=== PATIENT | female | born 1995 | race Caucasian/White ===

== ENCOUNTER 2016-08-10 16:39 | Emergency (ER) | payer MEDICAID, OTHER, SELFPAY ==
[2016-08-10] MEDS ORDERED: PERCOCET 5MG/325MG TAB As Ordered ONE ×2 (19:09→21:14)
[2016-08-10 19:32] LABS: MEAN CORPUSCULAR HEMOGLOBIN 32.6 pg (27.0-33.0); MEAN CORPUSCULAR HGB CONC 32.9 g/dl (32.0-36.5); MEAN CORPUSCULAR VOLUME 99.2 fl (80.0-96.0); RED CELL DISTRIBUTION WIDTH 12.8 % (11.5-14.5); WHITE BLOOD COUNT 15.5 K/mm3 (4.0-10.0)
[2016-08-10 20:16] LABS: ANION GAP 8 MEQ/L (8-16); BLOOD UREA NITROGEN 13 MG/DL (7-18); CALCIUM LEVEL 8.8 MG/DL (8.5-10.1); CARBON DIOXIDE LEVEL 27 MEQ/L (21-32); CHLORIDE LEVEL 105 MEQ/L (98-107); CREATININE FOR GFR 0.63 MG/DL (0.55-1.02); GLOMERULAR FILTRATION RATE > 60.0 (>60); GLUCOSE, FASTING 99 MG/DL (70-105); HCG, SERUM QUANTITATIVE 1553 MIU/ML; POTASSIUM SERUM 3.7 MEQ/L (3.5-5.1); SODIUM LEVEL 140 MEQ/L (136-145)
--- NOTE | 2016-08-10 21:10 | REPUSA ---
Clinical history: bleeding. Findings: Real-time transabdominal ultrasound images of the pelvis were obtained. An anteverted uteru s is noted, measuring 12.0 x 4.9 x 6.0 cm. The uterus demonstrates normal echotexture and echogenicit y. The endometrial canal demonstrated intrauterine gestation with a mean sac diameter of 30.3 mm. A f etal pole is noted, measuring 8 weeks 3 days. However, no heart tones were appreciated. The ges tational sac is located in the lower uterine segment. The right ovary measures 3.7 x 2.3 x 2.2 cm. Th e left ovary measures 3.1 x 1.6 x 3.3 cm. No adnexal masses are seen. Color Doppler flow is seen with in both ovaries. There is no evidence of free fluid. Impression: Single intrauterine gestation measuring 8 weeks 3 days by ultrasound measurements. Howeve r, no heart tones are appreciated. The gestational sac is located in the lower uterine segment. Both of these findings suggest a missed . Follow-up with serial serum beta hCG levels is rec ommended as clinically indicated.
[2016-08-10] MEDS ORDERED: NITROFURANTOIN (MACROBID) 100 MG CAP As Ordered ONE (21:28)
--- NOTE | 2016-08-10 21:36 | EDDOCDS ---
Physician Documentation [facility] Name: Danni Ash Age: 21 yrs Sex: Female : 1995 Arrival Date: 08/10/2016 Time: 16:39 Bed I4 / M4 Private MD: NO PRIMARY PHYSICIAN, . Disposition: 08/10/16 21:21 Discharged to Home/Self Care. Impression: Missed , Urinary tract infection, site not specified. - Condition is Stable. - Discharge Instructions: Incomplete Miscarriage, Miscarriage. - Prescriptions for Percocet 5- 325 mg Oral Tablet - take 1 tablet by ORAL route every 6 hours As needed MDD: 4 tabs; 20 tablet. Macrobid 100 mg Oral Capsule - take 100 milligram by ORAL route every 12 hours for 10 days; 20 capsule. - Medication Reconciliation, Local Pharmacy Hours form. - Follow up: Les Hernandez MD; When: Call to arrange an appointment; Reason: Recheck today's complaints, Continuance of care. - Problem is new. - Symptoms are unchanged. Historical: - Allergies: no known allergies; - Home Meds: 1. none - PMHx: none; - PSHx: Tonsillectomy; - Social history: Smoking status: Patient uses tobacco products, light tobacco smoker. No barriers to communication noted, The patient speaks fluent Wolof. - : The pt / caregiver states he / she is not on anticoagulants. Home medication list is obtained from the patient. - Exposure Risk Screening:: None identified. 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 6 in. (167.64 cm) (R); 21:31 BP 140 / 85; Pulse 96; Resp 18; Temp 100.5(TE); Pulse Ox 99% on R/A; Pain 8/10; jb5 16:41 Body Mass Index 16.79 (47.17 kg, 167.64 cm) dd6 21:31 pevis area pain jb5 MDM: 19:03 IV Saline Lock ordered. mo1 19:03 Undress patient appropriately for examination ordered. mo1 19:03 NS 0.9% 1000 ml IV at bolus once ordered. mo1 19:03 oxyCODONE-acetaminophen 5 mg-325 mg 1 tabs PO once ordered. mo1 19:04 Complete Blood Count Ordered. EDMS 19:04 Hcg, Serum Quantitative Ordered. EDMS 19:04 Urinalysis Ordered. EDMS 19:04 BMP Ordered. EDMS 19:04 GC & Chlamydia Amplification Ordered. EDMS 19:05 Wet Prep Ordered. EDMS 19:05 Type & Screen Ordered. EDMS 19:05 US 1st trimester Ordered. EDMS 19:35 Financial registration complete. zo 19:38 [facility] Payment Agreement was scanned into [employer] and attached to record. zo 19:57 Complete Blood Count Reviewed. mo1 19:58 Urinalysis Reviewed. mo1 19:58 Type & Screen Reviewed. mo1 19:58 Wet Prep Reviewed. mo1 20:22 BMP Reviewed. mo1 20:22 Hcg, Serum Quantitative Reviewed. mo1 20:22 Type & Screen Reviewed. mo1 21:10 oxyCODONE-acetaminophen 5 mg-325 mg 1 tabs PO once ordered. mo1 21:24 Nitrofurantoin 100 mg PO once ordered. mo1 21:32 GC & Chlamydia Amplification Reviewed. mo1 Administered Medications: 19:13 Drug: oxyCODONE-acetaminophen 1 tabs [oxycodone-acetaminophen 5 mg-325 mg tablet (1 cz tabs)] Route: PO; 20:08 Follow up: Response: No significant change. cp1 19:21 Drug: NS 0.9% 1000 ml [sodium chloride 0.9 % intravenous solution] Route: IV; Rate: jmb bolus; Site: right antecubital; 21:33 Follow up: IV Status: Completed infusion cz 21:16 Drug: oxyCODONE-acetaminophen 1 tabs [oxycodone-acetaminophen 5 mg-325 mg tablet (1 cp1 tabs)] {Note: 9/10 pain.} Route: PO; Signatures: Dispatcher [employer] EDMS Parth Davalos RN RN cz Odalys Stuart Rosemary, RN RN rs3 Niko Tse PA PA mo1 Lolly Jalloh LPN cp1 Cortez Taylor RN jmb The chart was reviewed and I authenticate all verbal orders and agree with the evaluation and treatment provided.Attachments: 19:38 [facility] [place] Payment Agreement zo MTDD
--- NOTE | 2016-08-10 21:37 | EDDOCDS ---
Nurse's Notes [facility] Name: Danni Ash Age: 21 yrs Sex: Female : 1995 Arrival Date: 08/10/2016 Time: 16:39 Bed I4 / M4 Private MD: NO PRIMARY PHYSICIAN, . Diagnosis: Missed ;Urinary tract infection, site not specified Presentation: 08/10 17:00 Presenting complaint: Patient states: Vaginal bleeding, cramps since yesterday. passed rs3 big blood clots yesterday. 9 weeks . Risk factors: The patient reports no loss of conciousness prior to arrival. This patient has not had a hysterectomy. This patient has not begun menopause. Adult Sepsis Screening: The patient does not have new or worsening altered mentation. Patient's respiratory rate is less than 22. Systolic blood pressure is greater than 100. Patient has a qSOFA score of 0- Negative Sepsis Screen. Suicide/Homicide risk assessment- the patient denies having any suicidal and/or homicidal ideations and does not present with any other emotional, behavioral or mental health complaints. 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 Transition of care: patient was not received from another setting of care. 17:00 Acuity: SOURAV Level 3 rs3 17:00 Method Of Arrival: Walkin/Carried/Asstd rs3 Triage Assessment: 17:02 General: Appears in no apparent distress. Pain: Location: pelvis. HIV screening NA for rs3 this visit Offered previously. : Reports vaginal bleeding that is moderate flow. 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 none - PMHx: none; - PSHx: Tonsillectomy; - Social history: Smoking status: Patient uses tobacco products, light tobacco smoker. No barriers to communication noted, The patient speaks fluent Amharic. - : The pt / caregiver states he / she is not on anticoagulants. Home medication list is obtained from the patient. - Exposure Risk Screening:: None identified. Screenin:22 Screening information is obtained from the patient. Fall risk: No risks identified. ms2 Assistance ADL's: requires no assistance with activities of daily living. Abuse/DV Screen: The patient / caregiver reports he/she is: not in a situation that causes fear, pain or injury. Nutritional screening: No deficits noted. Advance Directives: Currently, there is no health care proxy. There is no active DNR order. There is no living will. There is no Power of Contracting Engineer. Advance directive information has not previously been placed in an [facility] medical record. Further advance directive information is declined. home support is adequate. Assessment: 18:19 General: Appears in no apparent distress, Behavior is cooperative. Pain: Location: ms2 suprapubic area Pain currently is 4 out of 10 on a pain scale. Neurological: Level of Consciousness is awake, alert, obeys commands. Respiratory: No deficits noted. Airway is patent Respiratory effort is even, unlabored, Respiratory pattern is regular, symmetrical. GI: Abdomen is flat, non- distended. Derm: Skin is pink, warm & dry. Musculoskeletal: Range of motion intact in all extremities. 19:24 General: Appears in no apparent distress, comfortable, Behavior is appropriate for age, jmb cooperative. Pain: Location: pelvis Pain currently is 8 out of 10 on a pain scale. Neurological: Level of Consciousness is awake, alert, obeys commands, Oriented to person, place, time, Speech is normal, Facial symmetry appears normal, Facial symmetry: tongue is midline. Cardiovascular: Capillary refill < 3 seconds Heart tones present Pulses are all present. Rhythm is regular. Respiratory: Airway is patent Respiratory effort is even, unlabored, Respiratory pattern is regular, symmetrical, Breath sounds are clear bilaterally. GI: Abdomen is non- distended Bowel sounds present X 4 quads. Abd is soft X 4 quads. Derm: Skin is pink, warm & dry. Musculoskeletal: Range of motion intact in all extremities. Vital Signs: 16:41 BP 133 / 77; Pulse 125; Resp 18 S; Temp 97.3(O); Pulse Ox 100% on R/A; Weight 47.17 kg dd6 (R); Height 5 ft. 6 in. (167.64 cm) (R); 21:31 BP 140 / 85; Pulse 96; Resp 18; Temp 100.5(TE); Pulse Ox 99% on R/A; Pain 8/10; jb5 16:41 Body Mass Index 16.79 (47.17 kg, 167.64 cm) dd6 21:31 pevis area pain jb5 Vitals: 16:41 Log In Time: August 10, 2016 at 16:39. dd6 ED Course: 16:41 Patient visited by Toni Vanessa PCA. dd6 16:41 NO PRIMARY PHYSICIAN, . is Private Physician. dd6 16:41 Patient moved to Waiting dd6 16:41 Patient moved to Pre RCE dd6 17:02 Triage Initiated rs3 18:15 Patient moved to Triage 3 ms2 18:19 Patient visited by Eric Santos,KIKE. ms2 18:24 The patient / caregiver is instructed regarding the plan of care and ED course. ms2 18:46 Niko Tse PA is PHCP. mo1 18:46 Nathanael Schwartz MD is Attending Physician. mo1 18:50 Patient visited by Niko Tse PA. mo1 19:07 Patient moved to I4 / M4 ms2 19:14 Urinalysis Sent. ct3 19:20 BMP Sent. jmb 19:20 Complete Blood Count Sent. jmb 19:20 Hcg, Serum Quantitative Sent. jmb 19:20 Type & Screen Sent. jmb 19:25 Patient visited by Cortez Taylor RN. jmb 19:38 [facility] Payment Agreement was scanned into [employer] and attached to record. zo 19:46 Wet Prep Sent. jb5 19:46 GC & Chlamydia Amplification Sent. jb5 19:46 Discontinued lock. Assist provider with pelvic exam:. cz 20:08 Patient visited by Lolly Jalloh LPN. cp1 20:19 Patient visited by Lolly Jalloh LPN. cp1 20:40 Patient visited by Lolly Jalloh LPN. cp1 21:13 Patient visited by Lolly Jalloh LPN. cp1 21:21 Les Hernandez MD is Referral Physician. mo1 21:21 US 1st trimester Returned. EDMS 21:32 Patient visited by Luz Muniz PCA. jb5 Administered Medications: 19:13 Drug: oxyCODONE-acetaminophen 1 tabs [oxycodone-acetaminophen 5 mg-325 mg tablet (1 cz tabs)] Route: PO; 20:08 Follow up: Response: No significant change. cp1 19:21 Drug: NS 0.9% 1000 ml [sodium chloride 0.9 % intravenous solution] Route: IV; Rate: jmb bolus; Site: right antecubital; 21:33 Follow up: IV Status: Completed infusion cz 21:16 Drug: oxyCODONE-acetaminophen 1 tabs [oxycodone-acetaminophen 5 mg-325 mg tablet (1 cp1 tabs)] {Note: 9/10 pain.} Route: PO; Order Results: Lab Order: Complete Blood Count; SPEC'M 08/10/16 19:18 Test: WHITE BLOOD COUNT; Value: 15.5; Range: 4.0-10.0; Abnormal: Above high normal; Units: K/mm3; Status: F Test: RED BLOOD COUNT; Value: 3.53; Range: 4.00-5.40; Abnormal: Below low normal; Units: M/mm3; Status: F Test: HEMOGLOBIN; Value: 11.5; Range: 12.0-16.0; Abnormal: Below low normal; Units: g/dl; Status: F Test: HEMATOCRIT; Value: 35.1; Range: 36.0-47.0; Abnormal: Below low normal; Units: %; Status: F Test: MEAN CORPUSCULAR VOLUME; Value: 99.2; Range: 80.0-96.0; Abnormal: Above high normal; Units: fl; Status: F Test: MEAN CORPUSCULAR HEMOGLOBIN; Value: 32.6; Range: 27.0-33.0; Units: pg; Status: F Test: MEAN CORPUSCULAR HGB CONC; Value: 32.9; Range: 32.0-36.5; Units: g/dl; Status: F Test: RED CELL DISTRIBUTION WIDTH; Value: 12.8; Range: 11.5-14.5; Units: %; Status: F Test: PLATELET COUNT, AUTOMATED; Value: 338; Range: 150-450; Units: k/mm3; Status: F Lab Order: Hcg, Serum Quantitative; SPEC'M 08/10/16 19:18 Test: HCG, SERUM QUANTITATIVE; Value: 1553; Units: MIU/ML; Status: F Test Note: ; GESTATIONAL AGE APPROXIMATE HCG RANGE (MIU/ML) 0.2-1 WEEK 5-50 1-2 WEEKS 50-500 2-3 WEEKS 100-5,000 3-4 WEEKS 500-10,000 4-5 WEEKS 1,000-50,000 5-6 WEEKS 10,000-100,000 6-8 WEEKS 15,000-200,000 2-3 MONTHS 10,000-100,000 NON FEMALES LESS THAN 3.0 Patient samples may contain human heterophilic antibodies that could react with immunoassays to give falsely elevated or depressed results. This assay has been designed to minimize interference from heterophilic antibodies. Elevated hCG levels have also been associated with trophoblastic disease and nontrophoblastic neoplasms. The possibility of having these diseases should be considered before a diagnosis of is made. This test is not intended for use as a surrogate marker for aiding in the diagnosis or monitoring the treatment of cancer patients. [employer] methodology. Lab Order: Type & Screen; SPEC' 08/10/16 19:18 Test: BLOOD TYPE; Value: O POS; Status: F Test: AB SCREEN (INDIRECT RYLEE)GEL; Value: NEGATIVE; Status: F Lab Order: Urinalysis; SPEC'M 08/10/16 19:08 Test: APPEARANCE, URINE; Value: CLOUDY; Range: CLEAR; Abnormal: Above high normal; Status: F Test: COLOR, URINE; Value: RED; Range: YELLOW; Abnormal: Above high normal; Status: F Test: PH,URINE; Value: 6.0; Range: 5.0-9.0; Units: UNITS; Status: F Test: SPECIFIC GRAVITY URINE AUTO; Value: 1.021; Range: 1.002-1.035; Status: F Test: PROTEIN, URINE AUTO; Value: 2+; Range: NEGATIVE; Abnormal: Above high normal; Units: mg/dL; Status: F Test: GLUCOSE, URINE (UA) AUTO; Value: 1+; Range: NEGATIVE; Abnormal: Above high normal; Units: mg/dL; Status: F Test: KETONE, URINE AUTO; Value: NEGATIVE; Range: NEGATIVE; Units: mg/dL; Status: F Test: UROBILINOGEN, URINE AUTO; Value: 0.2; Range: 0.0-2.0; Units: mg/dL; Status: F Test: BILIRUBIN, URINE AUTO; Value: NEGATIVE; Range: NEGATIVE; Status: F Test: NITRITE, URINE AUTO; Value: NEGATIVE; Range: NEGATIVE; Status: F Test: LEUKOCYTE ESTERASE, URINE AUTO; Value: 1+; Range: NEGATIVE; Abnormal: Above high normal; Status: F Test: BLOOD, URINE BLOOD; Value: 3+; Range: NEGATIVE; Abnormal: Above high normal; Status: F Test: WBC, URINE AUTO; Value: 21; Range: 0-3; Abnormal: Above high normal; Units: /HPF; Status: F Test: RBC, URINE AUTO; Value: TNTC; Range: 0-3; Abnormal: Above high normal; Units: /HPF; Status: F Test: BACTERIA, URINE AUTO; Value: 1+; Range: NEGATIVE; Abnormal: Above high normal; Status: F Test: SQUAMOUS EPITHELIAL CELL UR AU; Value: 0; Range: 0-6; Units: /HPF; Status: F Test: HYALINE CAST, URINE AUTO; Value: 0; Range: 0-1; Units: /LPF; Status: F Lab Order: [facility]; SPEC'M 08/10/16 19:18 Test: GLUCOSE, FASTING; Value: 99; Range: 70-105; Units: MG/DL; Status: F Test: BLOOD UREA NITROGEN; Value: 13; Range: 7-18; Units: MG/DL; Status: F Test: CREATININE FOR GFR; Value: 0.63; Range: 0.55-1.02; Units: MG/DL; Status: F Test: GLOMERULAR FILTRATION RATE; Value: > 60.0; Range: >60; Status: F Test: SODIUM LEVEL; Value: 140; Range: 136-145; Units: MEQ/L; Status: F Test: POTASSIUM SERUM; Value: 3.7; Range: 3.5-5.1; Units: MEQ/L; Status: F Test: CHLORIDE LEVEL; Value: 105; Range: 98-107; Units: MEQ/L; Status: F Test: CARBON DIOXIDE LEVEL; Value: 27; Range: 21-32; Units: MEQ/L; Status: F Test: ANION GAP; Value: 8; Range: 8-16; Units: MEQ/L; Status: F Test: CALCIUM LEVEL; Value: 8.8; Range: 8.5-10.1; Units: MG/DL; Status: F Test Note: ; Units are mL/min/1.73 m2 Chronic Kidney Disease Staging per NKF: Stage I & II GFR >=60 Normal to Mildly Decreased Stage III GFR 30-59 Moderately Decreased Stage IV GFR 15-29 Severely Decreased Stage V GFR <15 Very Little GFR Left ESRD GFR <15 on BREAKER MACHINE OPERATOR Lab Order: GC & Chlamydia Amplification; SPEC'M 08/10/16 19:18 Test: CHLAMYDIA DNA AMPLIFICATION; Value: NEGATIVE; Range: NEGATIVE; Status: F Test: GC DNA AMPLIFICATION; Value: NEGATIVE; Range: NEGATIVE; Status: F Lab Order: Wet Prep; SPEC'M 08/10/16 19:18 Test: WET PREP; Value: WET PREP RESULT; Status: F Test: WET PREP; Value: FEW WBC; Status: F Test: WET PREP; Value: MANY RBC; Status: F Test: WET PREP; Value: FEW EPITHELIAL CELLS PRESENT; Status: F Radiology Order: US 1st trimester Test: US 1st trimester REASON FOR EXAMINATION: 8wks preg, bleeding and pain; ; Clinical history: bleeding.; Findings: Real-time transabdominal ultrasound images of the pelvis were obtained. An anteverted uteru; s is noted, measuring 12.0 x 4.9 x 6.0 cm. The uterus demonstrates normal echotexture and echogenicit; y. The endometrial canal demonstrated intrauterine gestation with a mean sac diameter of 30.3 mm. A f; etal pole is noted, measuring 8 weeks 3 days. However, no heart tones were appreciated. The ges; tational sac is located in the lower uterine segment. The right ovary measures 3.7 x 2.3 x 2.2 cm. Th; e left ovary measures 3.1 x 1.6 x 3.3 cm. No adnexal masses are seen. Color Doppler flow is seen with; in both ovaries. There is no evidence of free fluid.; Impression: Single intrauterine gestation measuring 8 weeks 3 days by ultrasound measurements. Howeve; r, no heart tones are appreciated. The gestational sac is located in the lower uterine segment.; Both of these findings suggest a missed . Follow-up with serial serum beta hCG levels is rec; ommended as clinically indicated.; ; Outcome: 21:21 Discharge ordered by Provider. mo1 21:33 Discharge Assessment: Patient awake, alert and oriented x 3. No cognitive and/or cz functional deficits noted. Patient verbalized understanding of disposition instructions. patient administered narcotics - yes. Pt provided with safe discharge. The following High Risk Discharge criteria are identified: None. Discharged to home ambulatory, with friend. Condition: stable. Discharge instructions given to patient, Instructed on discharge instructions, follow up and referral plans. medication usage, Demonstrated understanding of instructions, medications, Pt was receptive of discharge instructions/ teaching. Prescriptions given X 1. Ultrasound Study completed. Property :Personal belongings accompany Pt. 21:36 Patient left the ED. cz Signatures: Dispatcher [employer] EDMS Eric Santos,RN RN ms2 Parth Davalos RN RN cz Luz Muniz, BATTERY CONTAINER INSPECTOR BATTERY CONTAINER INSPECTOR jb5 Odalys Stuart Daniell, BATTERY CONTAINER INSPECTOR BATTERY CONTAINER INSPECTOR dd6 Patricia Mclain,RN RN rs3 Lolly Jalloh,FLEET COORDINATOR FLEET COORDINATOR cp1 Bridgette Mohamud, BATTERY CONTAINER INSPECTOR BATTERY CONTAINER INSPECTOR ct3 Niko Tse PA PA mo1 Cortez Taylor,RN RN donaldob MTDD
--- NOTE | 2016-08-12 22:37 | EDDOCDS ---
Physician Documentation [facility] Name: Danni Ash Age: 21 yrs Sex: Female : 1995 Arrival Date: 08/10/2016 Time: 16:39 Bed I4 / M4 Private MD: NO PRIMARY PHYSICIAN, . Disposition: 08/10/16 21:21 Discharged to Home/Self Care. Impression: Missed , Urinary tract infection, site not specified. - Condition is Stable. - Discharge Instructions: Incomplete Miscarriage, Miscarriage. - Prescriptions for Percocet 5- 325 mg Oral Tablet - take 1 tablet by ORAL route every 6 hours As needed MDD: 4 tabs; 20 tablet. Macrobid 100 mg Oral Capsule - take 100 milligram by ORAL route every 12 hours for 10 days; 20 capsule. - Medication Reconciliation, Local Pharmacy Hours form. - Follow up: Les Hernandez MD; When: Call to arrange an appointment; Reason: Recheck today's complaints, Continuance of care. - Problem is new. - Symptoms are unchanged. Historical: - Allergies: no known allergies; - Home Meds: 1. none - PMHx: none; - PSHx: Tonsillectomy; - Social history: Smoking status: Patient uses tobacco products, light tobacco smoker. No barriers to communication noted, The patient speaks fluent [place]. - : The pt / caregiver states he / she is not on anticoagulants. Home medication list is obtained from the patient. - Exposure Risk Screening:: None identified. 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 6 in. (167.64 cm) (R); 21:31 BP 140 / 85; Pulse 96; Resp 18; Temp 100.5(TE); Pulse Ox 99% on R/A; Pain 8/10; jb5 16:41 Body Mass Index 16.79 (47.17 kg, 167.64 cm) dd6 21:31 pevis area pain jb5 MDM: 19:03 IV Saline Lock ordered. mo1 19:03 Undress patient appropriately for examination ordered. mo1 19:03 NS 0.9% 1000 ml IV at bolus once ordered. mo1 19:03 oxyCODONE-acetaminophen 5 mg-325 mg 1 tabs PO once ordered. mo1 19:04 Complete Blood Count Ordered. EDMS 19:04 Hcg, Serum Quantitative Ordered. EDMS 19:04 Urinalysis Ordered. EDMS 19:04 BMP Ordered. EDMS 19:04 GC & Chlamydia Amplification Ordered. EDMS 19:05 Wet Prep Ordered. EDMS 19:05 Type & Screen Ordered. EDMS 19:05 US 1st trimester Ordered. EDMS 19:35 Financial registration complete. zo 19:38 [facility] [place] was [place] into [employer] and attached to record. zo 19:57 Complete Blood Count Reviewed. mo1 19:58 Urinalysis Reviewed. mo1 19:58 Type & Screen Reviewed. mo1 19:58 Wet Prep Reviewed. mo1 20:22 BMP Reviewed. mo1 20:22 Hcg, Serum Quantitative Reviewed. mo1 20:22 Type & Screen Reviewed. mo1 21:10 oxyCODONE-acetaminophen 5 mg-325 mg 1 tabs PO once ordered. mo1 21:24 Nitrofurantoin 100 mg PO once ordered. mo1 21:32 GC & Chlamydia Amplification Reviewed. mo1 08/11 10:43 T-Sheet-- Draft Copy was scanned into [employer] and attached to record. gb 10:43 Radiology Report was scanned into [employer] and attached to record. gb Administered Medications: 08/10 19:13 Drug: oxyCODONE-acetaminophen 1 tabs [oxycodone-acetaminophen 5 mg-325 mg tablet (1 cz tabs)] Route: PO; 20:08 Follow up: Response: No significant change. cp1 19:21 Drug: NS 0.9% 1000 ml [sodium chloride 0.9 % intravenous solution] Route: IV; Rate: jmb bolus; Site: right antecubital; 21:33 Follow up: IV Status: Completed infusion cz 21:16 Drug: oxyCODONE-acetaminophen 1 tabs [oxycodone-acetaminophen 5 mg-325 mg tablet (1 cp1 tabs)] {Note: 9/10 pain.} Route: PO; Signatures: Dispatcher [employer] Parth Mcgraw RN RN cz Jenni Patel, Reg Reg gb Odalys Stuart Rosemary, RN RN rs3 Niko Tse PA PA mo1 Lolly Jalloh LPN cp1 Cortez Taylor RNb The chart was reviewed and I authenticate all verbal orders and agree with the evaluation and treatment provided.Attachments: 19:38 [facility] [place] zo 08/11 10:43 T-Sheet-- Draft Copy gb Chart Complete MTDD
--- NOTE | 2016-08-12 22:37 | EDDOCDS ---
Nurse's Notes [facility] Name: Danni Ash Age: 21 yrs Sex: Female : 1995 Arrival Date: 08/10/2016 Time: 16:39 Bed I4 / M4 Private MD: NO PRIMARY PHYSICIAN, . Diagnosis: Missed ;Urinary tract infection, site not specified Presentation: 08/10 17:00 Presenting complaint: Patient states: Vaginal bleeding, cramps since yesterday. passed rs3 big blood clots yesterday. 9 weeks . Risk factors: The patient reports no loss of conciousness prior to arrival. This patient has not had a hysterectomy. This patient has not begun menopause. Adult Sepsis Screening: The patient does not have new or worsening altered mentation. Patient's respiratory rate is less than 22. Systolic blood pressure is greater than 100. Patient has a qSOFA score of 0- Negative Sepsis Screen. Suicide/Homicide risk assessment- the patient denies having any suicidal and/or homicidal ideations and does not present with any other emotional, behavioral or mental health complaints. Status: Patient is not a surgical services assistant or dependent. Transition of care: patient was not received from another setting of care. 17:00 Acuity: SOURAV Level 3 rs3 17:00 Method Of Arrival: Walkin/Carried/Asstd rs3 Triage Assessment: 17:02 General: Appears in no apparent distress. Pain: Location: pelvis. HIV screening NA for rs3 this visit Offered previously. : Reports vaginal bleeding that is moderate flow. 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 none - PMHx: none; - PSHx: Tonsillectomy; - Social history: Smoking status: Patient uses tobacco products, light tobacco smoker. No barriers to communication noted, The patient speaks fluent Lao. - : The pt / caregiver states he / she is not on anticoagulants. Home medication list is obtained from the patient. - Exposure Risk Screening:: None identified. Screenin:22 Screening information is obtained from the patient. Fall risk: No risks identified. ms2 Assistance ADL's: requires no assistance with activities of daily living. Abuse/DV Screen: The patient / caregiver reports he/she is: not in a situation that causes fear, pain or injury. Nutritional screening: No deficits noted. Advance Directives: Currently, there is no health care proxy. There is no active DNR order. There is no living will. There is no Power of Block Stacker. Advance directive information has not previously been placed in an [facility] medical record. Further advance directive information is declined. home support is adequate. Assessment: 18:19 General: Appears in no apparent distress, Behavior is cooperative. Pain: Location: ms2 suprapubic area Pain currently is 4 out of 10 on a pain scale. Neurological: Level of Consciousness is awake, alert, obeys commands. Respiratory: No deficits noted. Airway is patent Respiratory effort is even, unlabored, Respiratory pattern is regular, symmetrical. GI: Abdomen is flat, non- distended. Derm: Skin is pink, warm & dry. Musculoskeletal: Range of motion intact in all extremities. 19:24 General: Appears in no apparent distress, comfortable, Behavior is appropriate for age, jmb cooperative. Pain: Location: pelvis Pain currently is 8 out of 10 on a pain scale. Neurological: Level of Consciousness is awake, alert, obeys commands, Oriented to person, place, time, Speech is normal, Facial symmetry appears normal, Facial symmetry: tongue is midline. Cardiovascular: Capillary refill < 3 seconds Heart tones present Pulses are all present. Rhythm is regular. Respiratory: Airway is patent Respiratory effort is even, unlabored, Respiratory pattern is regular, symmetrical, Breath sounds are clear bilaterally. GI: Abdomen is non- distended Bowel sounds present X 4 quads. Abd is soft X 4 quads. Derm: Skin is pink, warm & dry. Musculoskeletal: Range of motion intact in all extremities. Vital Signs: 16:41 BP 133 / 77; Pulse 125; Resp 18 S; Temp 97.3(O); Pulse Ox 100% on R/A; Weight 47.17 kg dd6 (R); Height 5 ft. 6 in. (167.64 cm) (R); 21:31 BP 140 / 85; Pulse 96; Resp 18; Temp 100.5(TE); Pulse Ox 99% on R/A; Pain 8/10; jb5 16:41 Body Mass Index 16.79 (47.17 kg, 167.64 cm) dd6 21:31 pevis area pain jb5 Vitals: 16:41 Log In Time: August 10, 2016 at 16:39. dd6 ED Course: 16:41 Patient visited by Toni Vanessa PCA. dd6 16:41 NO PRIMARY PHYSICIAN, . is Private Physician. dd6 16:41 Patient moved to Waiting dd6 16:41 Patient moved to Pre RCE dd6 17:02 Triage Initiated rs3 18:15 Patient moved to Triage 3 ms2 18:19 Patient visited by Eric Santos,KIKE. ms2 18:24 The patient / caregiver is instructed regarding the plan of care and ED course. ms2 18:46 Niko Tse PA is PHCP. mo1 18:46 Nathanael Schwartz MD is Attending Physician. mo1 18:50 Patient visited by Niko Tse PA. mo1 19:07 Patient moved to I4 / M4 ms2 19:14 Urinalysis Sent. ct3 19:20 BMP Sent. jmb 19:20 Complete Blood Count Sent. jmb 19:20 Hcg, Serum Quantitative Sent. jmb 19:20 Type & Screen Sent. jmb 19:25 Patient visited by Cortez Taylor,KIKE. jmb 19:38 [facility] Payment Agreement was scanned into [employer] and attached to record. zo 19:46 Wet Prep Sent. jb5 19:46 GC & Chlamydia Amplification Sent. jb5 19:46 Discontinued lock. Assist provider with pelvic exam:. cz 20:08 Patient visited by Lolly Jalloh LPN. cp1 20:19 Patient visited by Lolly Jalloh LPN. cp1 20:40 Patient visited by Lolly Jalloh LPN. cp1 21:13 Patient visited by Lolly Jalloh LPN. cp1 21:21 Les Hernandez MD is Referral Physician. mo1 21:21 US 1st trimester Returned. EDMS 21:32 Patient visited by Luz Muniz PCA. jb5 08/11 10:43 T-Sheet-- Draft Copy was scanned into [employer] and attached to record. gb 10:43 Radiology Report was scanned into [employer] and attached to record. gb Administered Medications: 08/10 19:13 Drug: oxyCODONE-acetaminophen 1 tabs [oxycodone-acetaminophen 5 mg-325 mg tablet (1 cz tabs)] Route: PO; 20:08 Follow up: Response: No significant change. cp1 19:21 Drug: NS 0.9% 1000 ml [sodium chloride 0.9 % intravenous solution] Route: IV; Rate: jmb bolus; Site: right antecubital; 21:33 Follow up: IV Status: Completed infusion cz 21:16 Drug: oxyCODONE-acetaminophen 1 tabs [oxycodone-acetaminophen 5 mg-325 mg tablet (1 cp1 tabs)] {Note: 10 pain.} Route: PO; Order Results: Lab Order: Complete Blood Count; SPEC'M 08/10/16 19:18 Test: WHITE BLOOD COUNT; Value: 15.5; Range: 4.0-10.0; Abnormal: Above high normal; Units: K/mm3; Status: F Test: RED BLOOD COUNT; Value: 3.53; Range: 4.00-5.40; Abnormal: Below low normal; Units: M/mm3; Status: F Test: HEMOGLOBIN; Value: 11.5; Range: 12.0-16.0; Abnormal: Below low normal; Units: g/dl; Status: F Test: HEMATOCRIT; Value: 35.1; Range: 36.0-47.0; Abnormal: Below low normal; Units: %; Status: F Test: MEAN CORPUSCULAR VOLUME; Value: 99.2; Range: 80.0-96.0; Abnormal: Above high normal; Units: fl; Status: F Test: MEAN CORPUSCULAR HEMOGLOBIN; Value: 32.6; Range: 27.0-33.0; Units: pg; Status: F Test: MEAN CORPUSCULAR HGB CONC; Value: 32.9; Range: 32.0-36.5; Units: g/dl; Status: F Test: RED CELL DISTRIBUTION WIDTH; Value: 12.8; Range: 11.5-14.5; Units: %; Status: F Test: PLATELET COUNT, AUTOMATED; Value: 338; Range: 150-450; Units: k/mm3; Status: F Lab Order: Hcg, Serum Quantitative; SPEC'M 08/10/16 19:18 Test: HCG, SERUM QUANTITATIVE; Value: 1553; Units: MIU/ML; Status: F Test Note: ; GESTATIONAL AGE APPROXIMATE HCG RANGE (MIU/ML) 0.2-1 WEEK 5-50 1-2 WEEKS 50-500 2-3 WEEKS 100-5,000 3-4 WEEKS 500-10,000 4-5 WEEKS 1,000-50,000 5-6 WEEKS 10,000-100,000 6-8 WEEKS 15,000-200,000 2-3 MONTHS 10,000-100,000 NON FEMALES LESS THAN 3.0 Patient samples may contain human heterophilic antibodies that could react with immunoassays to give falsely elevated or depressed results. This assay has been designed to minimize interference from heterophilic antibodies. Elevated hCG levels have also been associated with trophoblastic disease and nontrophoblastic neoplasms. The possibility of having these diseases should be considered before a diagnosis of is made. This test is not intended for use as a surrogate marker for aiding in the diagnosis or monitoring the treatment of cancer patients. [address] methodology. Lab Order: Type & Screen; SPEC'M 08/10/16 19:18 Test: BLOOD TYPE; Value: O POS; Status: F Test: AB SCREEN (INDIRECT RYLEE)GEL; Value: NEGATIVE; Status: F Lab Order: Urinalysis; SPEC'M 08/10/16 19:08 Test: APPEARANCE, URINE; Value: CLOUDY; Range: CLEAR; Abnormal: Above high normal; Status: F Test: COLOR, URINE; Value: RED; Range: YELLOW; Abnormal: Above high normal; Status: F Test: PH,URINE; Value: 6.0; Range: 5.0-9.0; Units: UNITS; Status: F Test: SPECIFIC GRAVITY URINE AUTO; Value: 1.021; Range: 1.002-1.035; Status: F Test: PROTEIN, URINE AUTO; Value: 2+; Range: NEGATIVE; Abnormal: Above high normal; Units: mg/dL; Status: F Test: GLUCOSE, URINE (UA) AUTO; Value: 1+; Range: NEGATIVE; Abnormal: Above high normal; Units: mg/dL; Status: F Test: KETONE, URINE AUTO; Value: NEGATIVE; Range: NEGATIVE; Units: mg/dL; Status: F Test: UROBILINOGEN, URINE AUTO; Value: 0.2; Range: 0.0-2.0; Units: mg/dL; Status: F Test: BILIRUBIN, URINE AUTO; Value: NEGATIVE; Range: NEGATIVE; Status: F Test: NITRITE, URINE AUTO; Value: NEGATIVE; Range: NEGATIVE; Status: F Test: LEUKOCYTE ESTERASE, URINE AUTO; Value: 1+; Range: NEGATIVE; Abnormal: Above high normal; Status: F Test: BLOOD, URINE BLOOD; Value: 3+; Range: NEGATIVE; Abnormal: Above high normal; Status: F Test: WBC, URINE AUTO; Value: 21; Range: 0-3; Abnormal: Above high normal; Units: /HPF; Status: F Test: RBC, URINE AUTO; Value: TNTC; Range: 0-3; Abnormal: Above high normal; Units: /HPF; Status: F Test: BACTERIA, URINE AUTO; Value: 1+; Range: NEGATIVE; Abnormal: Above high normal; Status: F Test: SQUAMOUS EPITHELIAL CELL UR AU; Value: 0; Range: 0-6; Units: /HPF; Status: F Test: HYALINE CAST, URINE AUTO; Value: 0; Range: 0-1; Units: /LPF; Status: F Lab Order: [facility]; SPEC'M 08/10/16 19:18 Test: GLUCOSE, FASTING; Value: 99; Range: 70-105; Units: MG/DL; Status: F Test: BLOOD UREA NITROGEN; Value: 13; Range: 7-18; Units: MG/DL; Status: F Test: CREATININE FOR GFR; Value: 0.63; Range: 0.55-1.02; Units: MG/DL; Status: F Test: GLOMERULAR FILTRATION RATE; Value: > 60.0; Range: >60; Status: F Test: SODIUM LEVEL; Value: 140; Range: 136-145; Units: MEQ/L; Status: F Test: POTASSIUM SERUM; Value: 3.7; Range: 3.5-5.1; Units: MEQ/L; Status: F Test: CHLORIDE LEVEL; Value: 105; Range: 98-107; Units: MEQ/L; Status: F Test: CARBON DIOXIDE LEVEL; Value: 27; Range: 21-32; Units: MEQ/L; Status: F Test: ANION GAP; Value: 8; Range: 8-16; Units: MEQ/L; Status: F Test: CALCIUM LEVEL; Value: 8.8; Range: 8.5-10.1; Units: MG/DL; Status: F Test Note: ; Units are mL/min/1.73 m2 Chronic Kidney Disease Staging per NKF: Stage I & II GFR >=60 Normal to Mildly Decreased Stage III GFR 30-59 Moderately Decreased Stage IV GFR 15-29 Severely Decreased Stage V GFR <15 Very Little GFR Left ESRD GFR <15 on SENIOR INFORMATION SYSTEMS ARCHITECT Lab Order: GC & Chlamydia Amplification; SPEC'M 08/10/16 19:18 Test: CHLAMYDIA DNA AMPLIFICATION; Value: NEGATIVE; Range: NEGATIVE; Status: F Test: GC DNA AMPLIFICATION; Value: NEGATIVE; Range: NEGATIVE; Status: F Lab Order: Wet Prep; SPEC'M 08/10/16 19:18 Test: WET PREP; Value: WET PREP RESULT; Status: F Test: WET PREP; Value: FEW WBC; Status: F Test: WET PREP; Value: MANY RBC; Status: F Test: WET PREP; Value: FEW EPITHELIAL CELLS PRESENT; Status: F Radiology Order: US 1st trimester Test: US 1st trimester REASON FOR EXAMINATION: 8wks preg, bleeding and pain; ; Clinical history: bleeding.; Findings: Real-time transabdominal ultrasound images of the pelvis were obtained. An anteverted uteru; s is noted, measuring 12.0 x 4.9 x 6.0 cm. The uterus demonstrates normal echotexture and echogenicit; y. The endometrial canal demonstrated intrauterine gestation with a mean sac diameter of 30.3 mm. A f; etal pole is noted, measuring 8 weeks 3 days. However, no heart tones were appreciated. The ges; tational sac is located in the lower uterine segment. The right ovary measures 3.7 x 2.3 x 2.2 cm. Th; e left ovary measures 3.1 x 1.6 x 3.3 cm. No adnexal masses are seen. Color Doppler flow is seen with; in both ovaries. There is no evidence of free fluid.; Impression: Single intrauterine gestation measuring 8 weeks 3 days by ultrasound measurements. Howeve; r, no heart tones are appreciated. The gestational sac is located in the lower uterine segment.; Both of these findings suggest a missed . Follow-up with serial serum beta hCG levels is rec; ommended as clinically indicated.; ; Outcome: 21:21 Discharge ordered by Provider. mo1 21:33 Discharge Assessment: Patient awake, alert and oriented x 3. No cognitive and/or cz functional deficits noted. Patient verbalized understanding of disposition instructions. patient administered narcotics - yes. Pt provided with safe discharge. The following High Risk Discharge criteria are identified: None. Discharged to home ambulatory, with friend. Condition: stable. Discharge instructions given to patient, Instructed on discharge instructions, follow up and referral plans. medication usage, Demonstrated understanding of instructions, medications, Pt was receptive of discharge instructions/ teaching. Prescriptions given X 1. Ultrasound Study completed. Property :Personal belongings accompany Pt. 21:36 Patient left the ED. cz Signatures: Dispatcher [employer] EDMS Eric Santos,RN RN ms2 Parth Davalos RN RN cz Jenni Patel, Reg Reg gb Luz Muniz, YARN SALVAGER YARN SALVAGER jb5 Odalys Stuart Daniell, YARN SALVAGER YARN SALVAGER dd6 Patricia Mclain RN RN rs3 Lolly Jalloh,DERRICK CAR OPERATOR DERRICK CAR OPERATOR cp1 Bridgette Mohamud, YARN SALVAGER YARN SALVAGER ct3 Niko Tse PA PA mo1 Cortez Taylor,RN RN donaldob Chart Complete MTDD
--- NOTE | 2016-08-12 22:37 | EDDOCDS ---
Physician Documentation [facility] Name: Danni Ash Age: 21 yrs Sex: Female : 1995 Arrival Date: 08/10/2016 Time: 16:39 Bed I4 / M4 Private MD: NO PRIMARY PHYSICIAN, . Disposition: 08/10/16 21:21 Discharged to Home/Self Care. Impression: Missed , Urinary tract infection, site not specified. - Condition is Stable. - Discharge Instructions: Incomplete Miscarriage, Miscarriage. - Prescriptions for Percocet 5- 325 mg Oral Tablet - take 1 tablet by ORAL route every 6 hours As needed MDD: 4 tabs; 20 tablet. Macrobid 100 mg Oral Capsule - take 100 milligram by ORAL route every 12 hours for 10 days; 20 capsule. - Medication Reconciliation, Local Pharmacy Hours form. - Follow up: Les Hernandez MD; When: Call to arrange an appointment; Reason: Recheck today's complaints, Continuance of care. - Problem is new. - Symptoms are unchanged. Historical: - Allergies: no known allergies; - Home Meds: 1. none - PMHx: none; - PSHx: Tonsillectomy; - Social history: Smoking status: Patient uses tobacco products, light tobacco smoker. No barriers to communication noted, The patient speaks fluent Belarusian. - : The pt / caregiver states he / she is not on anticoagulants. Home medication list is obtained from the patient. - Exposure Risk Screening:: None identified. 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 6 in. (167.64 cm) (R); 21:31 BP 140 / 85; Pulse 96; Resp 18; Temp 100.5(TE); Pulse Ox 99% on R/A; Pain 8/10; jb5 16:41 Body Mass Index 16.79 (47.17 kg, 167.64 cm) dd6 21:31 pevis area pain jb5 MDM: 19:03 IV Saline Lock ordered. mo1 19:03 Undress patient appropriately for examination ordered. mo1 19:03 NS 0.9% 1000 ml IV at bolus once ordered. mo1 19:03 oxyCODONE-acetaminophen 5 mg-325 mg 1 tabs PO once ordered. mo1 19:04 Complete Blood Count Ordered. EDMS 19:04 Hcg, Serum Quantitative Ordered. EDMS 19:04 Urinalysis Ordered. EDMS 19:04 BMP Ordered. EDMS 19:04 GC & Chlamydia Amplification Ordered. EDMS 19:05 Wet Prep Ordered. EDMS 19:05 Type & Screen Ordered. EDMS 19:05 US 1st trimester Ordered. EDMS 19:35 Financial registration complete. zo 19:38 [facility] Payment Agreement was scanned into [employer] and attached to record. zo 19:57 Complete Blood Count Reviewed. mo1 19:58 Urinalysis Reviewed. mo1 19:58 Type & Screen Reviewed. mo1 19:58 Wet Prep Reviewed. mo1 20:22 BMP Reviewed. mo1 20:22 Hcg, Serum Quantitative Reviewed. mo1 20:22 Type & Screen Reviewed. mo1 21:10 oxyCODONE-acetaminophen 5 mg-325 mg 1 tabs PO once ordered. mo1 21:24 Nitrofurantoin 100 mg PO once ordered. mo1 21:32 GC & Chlamydia Amplification Reviewed. mo1 08/11 10:43 T-Sheet-- Draft Copy was scanned into [employer] and attached to record. gb 10:43 Radiology Report was scanned into [employer] and attached to record. gb Administered Medications: 08/10 19:13 Drug: oxyCODONE-acetaminophen 1 tabs [oxycodone-acetaminophen 5 mg-325 mg tablet (1 cz tabs)] Route: PO; 20:08 Follow up: Response: No significant change. cp1 19:21 Drug: NS 0.9% 1000 ml [sodium chloride 0.9 % intravenous solution] Route: IV; Rate: jmb bolus; Site: right antecubital; 21:33 Follow up: IV Status: Completed infusion cz 21:16 Drug: oxyCODONE-acetaminophen 1 tabs [oxycodone-acetaminophen 5 mg-325 mg tablet (1 cp1 tabs)] {Note: 9/10 pain.} Route: PO; Signatures: Dispatcher [employer] Parth Mcgraw RN RN cz Jenni Patel, Reg Reg gb Odalys Stuart Rosemary, RN RN rs3 Niko Tse PA PA mo1 Lolly Jalloh LPN cp1 Cortez Taylor RNb The chart was reviewed and I authenticate all verbal orders and agree with the evaluation and treatment provided.Attachments: 19:38 [facility] Payment Agreement zo 08/11 10:43 T-Sheet-- Draft Copy gb Chart Complete MTDD
== END 2016-08-10 21:36 | disposition home or self-care (01) ==
LOC: M ED 16:39
DX: O02.1 Missed abortion (principal); O23.41 Unspecified infection of urinary tract in pregnancy, first trimester; Z3A.08 8 weeks gestation of pregnancy; O99.331 Smoking (tobacco) complicating pregnancy, first trimester; F17.210 Nicotine dependence, cigarettes, uncomplicated

== ENCOUNTER → 2016-08-23 | Outpatient (REF) | payer OTHER | LOC: M LAB REF 13:20 | PROVIDERS: ATTEND Advanced Practice Midwife | DX: O03.4 Incomplete spontaneous abortion without complication (principal) ==

== ENCOUNTER → 2018-03-27 | Outpatient (REF) | payer OTHER ==
[2018-03-27 13:38] LABS: HEMATOCRIT 38.1 % (36.0-47.0); HEMOGLOBIN 13.1 g/dl (12.0-15.5); MEAN CORPUSCULAR HEMOGLOBIN 33.5 pg (27.0-33.0); MEAN CORPUSCULAR HGB CONC 34.4 g/dl (32.0-36.5); MEAN CORPUSCULAR VOLUME 97.4 fl (80.0-96.0); PLATELET COUNT, AUTOMATED 298 10^3/uL (150-450); RED BLOOD COUNT 3.91 10^6/uL (4.00-5.40); RED CELL DISTRIBUTION WIDTH 11.6 % (11.5-14.5); WHITE BLOOD COUNT 7.6 10^3/uL (4.0-10.0)
[2018-03-27 14:20] LABS: HCG, SERUM QUANTITATIVE 44985 MIU/ML
[2018-03-28 13:42] LABS: RUBELLA IgG QUALITATIVE IMMUNE (IMMUNE)
[2018-03-28 13:48] LABS: HBsAg Prenatal NEGATIVE (NEGATIVE)
[2018-03-28 14:11] LABS: HEPATITIS C VIRUS ABY INDEX 0.2 INDEX (<0.8)
[2018-03-28 14:12] LABS: HIV 1&2 SCREEN CENTAUR NEGATIVE (NEGATIVE)
== END ==
LOC: M LAB REF 13:04
DX: O36.80X0 Pregnancy with inconclusive fetal viability, not applicable or unspecified (principal)

== ENCOUNTER → 2018-08-11 | Outpatient (CLI) | payer OTHER ==
[2018-08-11 15:15] LABS: HEMATOCRIT 36.1 % (36.0-47.0); HEMOGLOBIN 12.3 g/dl (12.0-15.5); MEAN CORPUSCULAR HGB CONC 34.1 g/dl (32.0-36.5); MEAN CORPUSCULAR VOLUME 99.7 fl (80.0-96.0); PLATELET COUNT, AUTOMATED 247 10^3/uL (150-450); RED BLOOD COUNT 3.62 10^6/uL (4.00-5.40); WHITE BLOOD COUNT 15.7 10^3/uL (4.0-10.0)
== END ==
LOC: M LAB 13:51
PROVIDERS: ATTEND Obstetrics & Gynecology
DX: Z34.82 Encounter for supervision of other normal pregnancy, second trimester (principal)

== ENCOUNTER → 2018-09-01 | Outpatient (REF) | payer OTHER | LOC: M LAB REF 15:34 | PROVIDERS: ATTEND Ophthalmology | DX: H10.403 Unspecified chronic conjunctivitis, bilateral (principal) ==

== ENCOUNTER → 2018-09-17 | Outpatient (REF) | payer OTHER | LOC: M LAB REF 12:15 | PROVIDERS: ATTEND Obstetrics & Gynecology | DX: Z34.83 Encounter for supervision of other normal pregnancy, third trimester (principal); Z3A.00 Weeks of gestation of pregnancy not specified ==

== ENCOUNTER 2018-10-29 02:19 | Inpatient (IN) | payer OTHER ==
[2018-10-29] VITALS (33 sets, daily range): BP systolic 99–153; BP diastolic 53–83
[~2018-10-29] VITALS: Ht 167.6 cm; Wt 71.0 kg
[2018-10-29] MEDS ORDERED: LACTATED RINGER'S 1000 ML IV STA (03:22)
[2018-10-29] MEDS ORDERED: PRENTAB9 PO (03:29)
[2018-10-29 04:49] LABS: HEMATOCRIT 39.4 % (36.0-47.0); HEMOGLOBIN 13.2 g/dl (12.0-15.5); MEAN CORPUSCULAR HEMOGLOBIN 33.9 pg (27.0-33.0); MEAN CORPUSCULAR HGB CONC 33.5 g/dl (32.0-36.5); MEAN CORPUSCULAR VOLUME 101.3 fl (80.0-96.0); PLATELET COUNT, AUTOMATED 278 10^3/uL (150-450); RED BLOOD COUNT 3.89 10^6/uL (4.00-5.40); WHITE BLOOD COUNT 18.5 10^3/uL (4.0-10.0)
[2018-10-29] MEDS: LR 1,000 ML IV SCH ×3 (06:08→13:01)
[2018-10-29] MEDS ORDERED: OXYTOCIN 30 UNITS IN 0.9% NaCl 500ML IV BAG (J2590) As Ordered ONE (07:20)
[2018-10-29] MEDS ORDERED: OXYTOCIN DRIP 30 UNITS in APPROPRIATE DILUENT 1 EA IV SCH ×2 (08:45→15:46)
[2018-10-29] MEDS ORDERED: FENTANYL 2MCG/ML ROPIVACAINE 0.2% IN 0.9% NACL 100ML IVBAG As Ordered ONE (09:21)
[2018-10-29] MEDS ORDERED: BUTORPHANOL 2 MG/ML INJ (J0595) IV PRN (11:00)
[2018-10-29] MEDS ORDERED: PROMETHAZINE INJ 25 MG/ML VIAL (J2550) IM PRN (11:00)
[2018-10-29] MEDS ORDERED: EPIDURAL/PCA KEYS XX PRN (12:15)
[2018-10-29] MEDS ORDERED: REFRIGERATOR IV KEYS XX PRN (12:15)
[2018-10-29] MEDS ORDERED: NALOXONE INJ 0.4 MG/1 ML VIAL (J2310) IV PRN (12:15)
[2018-10-29] MEDS ORDERED: EPIDURAL COMMENT XX SCH (12:15)
[2018-10-29] MEDS ORDERED: ONDANSETRON 4MG/2ML VIAL (J2405) IV PRN (12:15)
[2018-10-29] MEDS ORDERED: LACTATED RINGER'S 1000 ML IV PRN (12:15)
[2018-10-29] MEDS ORDERED: FENTANYL/ROPIVACAINE/NACL BAG 100 ML EPIDURAL SCH (12:15)
[2018-10-29] MEDS ORDERED: ePHEDrine SULFATE 25 MG/5 ML(5MG/ML) SYRINGE IV PRN (12:15)
[2018-10-29] MEDS ORDERED: diphenhydrAMINE INJ 50MG/ML VIAL (J1200) IV PRN (12:15)
[2018-10-29 15:56] LABS: CORD GAS ABE V -6.9; CORD GAS HCO3 V 18.3 MEQ/L; CORD GAS O2 SAT V 72.2 %; CORD GAS PCO2 V 36.1 mmHg; CORD GAS PH V 7.323 UNITS; CORD GAS PO2 V 34.7 mmHg; CORD GAS SBC V 18.4 MEQ/L; CORD GAS TCO2 V 19.4 MEQ/L
[2018-10-29 15:58] LABS: CORD GAS ABE A -6.1; CORD GAS HCO3 A 20.7 MEQ/L; CORD GAS O2 SAT A 16.5 %; CORD GAS PCO2 A 45.6 mmHg; CORD GAS PH A 7.274 UNITS; CORD GAS PO2 A 12.5 mmHg; CORD GAS SBC A 17.8 MEQ/L; CORD GAS TCO2 A 22.1 MEQ/L
[2018-10-29] MEDS ORDERED: DOCUSATE SODIUM 100 MG CAP PO PRN (16:00)
[2018-10-29] MEDS ORDERED: DIBUCAINE 1% OINTMENT 30GM TOP PRN (16:00)
[2018-10-29] MEDS ORDERED: ACETAMINOPHEN 500 MG TAB PO PRN (16:00)
[2018-10-29] MEDS ORDERED: MEASLES,MUMPS,RUBELLA VACCINE INJ (MMR-II) (90707) SC SCH (16:00)
[2018-10-29] MEDS ORDERED: RHOGAM 300 MCG (1500 IU) INJ (J2790) IM SCH (16:00)
[2018-10-29] MEDS ORDERED: SLF 3 ML SYR IV PRN (16:45)
[2018-10-29] MEDS: IBUPROFEN 800 MG TAB PO PRN (17:40)
[2018-10-29] MEDS: SLF 3 ML SYR IV SCH (22:30)
[2018-10-30] MEDS: IBUPROFEN 800 MG TAB PO PRN ×2 (03:53→14:10)
[2018-10-30 05:07] VITALS: BP 110/63
[2018-10-30] MEDS: SLF 3 ML SYR IV SCH ×2 (06:18→22:00)
--- NOTE | 2018-10-30 07:36 | HPE ---
DATE OF ADMISSION: 10/29/2018 Danni is a 23-year-old female, 2, para 0-0-1-0, with an expected date of confinement (EDC) of 10/20/2018, estimated gestational age (EGA) 41 and 1 weeks gestation who was originally scheduled for an induction, however, she presented with complaints of contractions and was found to be in labor. At this point, a decision was made for admission. Her record was reviewed and essentially unremarkable. She initiated care at 11 weeks. LABS: Blood type is O positive. Rubella immune. Hepatitis negative. HIV negative. GC and chlamydia negative. Rubella immune. GBS is negative. PAST MEDICAL HISTORY: Denies. PAST SURGICAL HISTORY: Tonsillectomy. SOCIAL HISTORY: Denies any alcohol or drugs. She is a smoker. FAMILY HISTORY: Significant for stomach and lung cancer, depression, bipolar, anxiety, and history of alcoholism. MEDICATIONS: vitamin. ALLERGIES: No known drug allergies. PHYSICAL EXAMINATION: Normal-appearing female in no acute distress. Abdomen: Soft, nontender, nondistended. Extremities: No clubbing, cyanosis or edema. Vaginal exam was done. The patient was found to be 4 cm dilated, 90% effaced, fetus at -1 station in a vertex position. Tracing reviewed. Category one tracing. Contractions every 4-5 minutes. ASSESSMENT: 1. Intrauterine at 41 weeks gestation in labor. 2. GBS negative. PLAN: Admit to labor and delivery. Routine labs sent. Pain management discussed. The patient opts for an epidural. Will continue to monitor. Anticipate delivery.
--- NOTE | 2018-10-30 07:39 | DN ---
DATE OF CONSULTATION: 10/29/2018 Danni is a 23-year-old female 2, para 0-0-1-0 who was admitted at 41 weeks gestation in labor. She progressed to fully dilated after artificial rupture of membranes and Pitocin augmentation. Delivered a live male in right occiput anterior position over an intact perineum. 8 and 9, weight 7 pounds 9 ounces. Nuchal cord times four was noted which was reduced at the perineum. Placenta delivered spontaneously intact. Three-vessel cord. Perineum, vagina and cervix inspected. No laceration noted. Estimated blood loss 300 mL. Both mother and baby in stable condition.
[2018-10-30] MEDS: PRENATAL VITAMINS CHEWABLE TABLET PO SCH (08:40)
[2018-10-30 19:06] VITALS: BP 115/65
[2018-10-31 05:58] VITALS: BP 103/52
[2018-10-31] MEDS ORDERED: MAPA500T2 PO (08:23)
[2018-10-31] MEDS ORDERED: IBUP-1114 PO (08:23)
[2018-10-31] MEDS ORDERED: INFLUENZA QUADRIVALENT PF VACCINE 0.5ML SYRINGE (90686) IM ONE (13:15)
[2018-10-31] MEDS ORDERED: ADACEL/BOOSTRIX VACCINE (DIPHTH/PERTUSS/ACELL/TETANUS)0.5ML SYR (90715) IM PRN (13:15)
[2018-10-31] MEDS: PRENATAL VITAMINS CHEWABLE TABLET PO SCH (13:16)
== END 2018-10-31 14:45 | disposition home or self-care (01) | DRG 560 ==
LOC: M LDO 02:19 → M LDI 03:21 → M OBS 17:54
PROVIDERS: ADMIT Obstetrics & Gynecology; ATTEND Obstetrics & Gynecology
PROC: 10E0XZZ Delivery of Products of Conception, External Approach (ICD-10-PCS; principal; 2018-10-29)
PROC: 10907ZC Drainage of Amniotic Fluid, Therapeutic from Products of Conception, Via Natural or Artificial Opening (ICD-10-PCS; 2018-10-29)
DX: O48.0 Post-term pregnancy (principal); Z3A.41 41 weeks gestation of pregnancy; O69.81X0 Labor and delivery complicated by cord around neck, without compression, not applicable or unspecified; Z37.0 Single live birth; O99.334 Smoking (tobacco) complicating childbirth; F17.210 Nicotine dependence, cigarettes, uncomplicated

== ENCOUNTER → 2018-11-25 | Outpatient (REF) | payer OTHER ==
[~2018-11-25] MED LIST: IBUP-1114 PO; MAPA500T2 PO; PRENTAB9 PO
== END ==
LOC: M LAB REF 16:20
PROVIDERS: ATTEND Ophthalmology
DX: H10.432 Chronic follicular conjunctivitis, left eye (principal)

== ENCOUNTER → 2021-05-23 | Outpatient (REF) | payer OTHER, SELFPAY ==
[~2021-05-23] MED LIST changes: +BUPR1FIL PO; +NITR100C2 PO
[2021-05-23 21:25] LABS: APPEARANCE, URINE CLOUDY (CLEAR); BACTERIA, URINE AUTO 2+ (NEGATIVE); BILIRUBIN, URINE AUTO NEGATIVE (NEGATIVE); BLOOD, URINE BLOOD 2+ (NEGATIVE); COLOR, URINE YELLOW (YELLOW); GLUCOSE, URINE (UA) AUTO NEGATIVE (NEGATIVE); KETONE, URINE AUTO 1+ mg/dL (NEGATIVE); LEUKOCYTE ESTERASE, URINE AUTO 3+ (NEGATIVE); MUCUS, URINE SMALL (NEGATIVE); NITRITE, URINE AUTO NEGATIVE (NEGATIVE); PROTEIN, URINE AUTO 2+ mg/dL (NEGATIVE); RBC, URINE AUTO 32 /HPF (0-3); SPECIFIC GRAVITY URINE AUTO 1.012 (1.002-1.035); SQUAMOUS EPITHELIAL CELL UR AU 1 /HPF (0-6); TRANSITIONAL EPITHELIAL AUTO <1 /HPF; UROBILINOGEN, URINE AUTO 0.2 mg/dL (0.0-2.0); WBC, URINE AUTO TNTC /HPF (0-3)
== END ==
LOC: M LAB REF 20:30
PROVIDERS: ATTEND Physician Assistant Medical
DX: R30.0 Dysuria (principal)

== ENCOUNTER → 2021-06-20 | Outpatient (REF) | payer OTHER, SELFPAY ==
[2021-06-20 21:40] LABS: APPEARANCE, URINE CLOUDY (CLEAR); BACTERIA, URINE AUTO 2+ (NEGATIVE); BILIRUBIN, URINE AUTO NEGATIVE (NEGATIVE); BLOOD, URINE BLOOD 2+ (NEGATIVE); COLOR, URINE YELLOW (YELLOW); GLUCOSE, URINE (UA) AUTO NEGATIVE (NEGATIVE); KETONE, URINE AUTO NEGATIVE (NEGATIVE); LEUKOCYTE ESTERASE, URINE AUTO 3+ (NEGATIVE); MUCUS, URINE SMALL (NEGATIVE); NITRITE, URINE AUTO POSITIVE (NEGATIVE); PROTEIN, URINE AUTO 2+ mg/dL (NEGATIVE); RBC, URINE AUTO 34 /HPF (0-3); SPECIFIC GRAVITY URINE AUTO 1.012 (1.002-1.035); SQUAMOUS EPITHELIAL CELL UR AU 3 /HPF (0-6); UROBILINOGEN, URINE AUTO 0.2 mg/dL (0.0-2.0); WBC, URINE AUTO TNTC /HPF (0-3)
== END ==
LOC: M LAB REF 21:23
PROVIDERS: ATTEND Physician Assistant Medical
DX: N39.0 Urinary tract infection, site not specified (principal)

== ENCOUNTER 2021-06-24 14:55 | Emergency (ER) | payer OTHER, SELFPAY ==
[~2021-06-24] VITALS: Ht 167.6 cm; Wt 51.0 kg
[~2021-06-24 14:55] MED LIST changes: -BUPR1FIL PO; -NITR100C2 PO
--- OUTSIDE RECORDS SUMMARY | 2021-06-24 15:03 | CCD ---
Author Author [facility] Organization [facility] Address Unknown Phone Unavailable Support Name Relationship Address Phone [employer] Next Of Kin [address] [place] [address] RANJIT GALINDO Next Of Kin [address] [facility] [address] [place] [address] Ramy Ibarra MD Next Of Kin [address] [place] [address] PEACE Next Of Kin [id number] [address] GAEL FERNANDEZ Next Of Kin [address] [facility] [address] [place] [address] UE Next Of Kin Unknown Unavailable SARBJIT JENNINGS Next Of Kin [address] [place] [address] MARLENE HAMILTON Next Of Kin [address] [place] [address] Re-disclosure Warning The records that you are about to access may contain information from federally-assisted alcohol or drug abuse programs. If such information is present, then the following federally mandated warning applies: This information has been disclosed to you from records protected by federal confidentiality rules (42 CFR part 2). The federal rules prohibit you from making any further disclosure of this information unless further disclosure is expressly permitted by the written consent of the person to whom it pertains or as otherwise permitted by 42 CFR part 2. A general authorization for the release of medical or other information is NOT sufficient for this purpose. The Federal rules restrict any use of the information to criminally investigate or prosecute any alcohol or drug abuse patient.The records that you are about to access may contain highly sensitive health information, the redisclosure of which is protected by Article 27-F of the [place] State Public Health law. If you continue you may have access to information: Regarding HIV / AIDS; Provided by facilities licensed or operated by the [facility] Office of Mental Health; or Provided by the [facility] Office for People With Developmental Disabilities. If such information is present, then the following [facility] mandated warning applies: This information has been disclosed to you from confidential records which are protected by state law. State law prohibits you from making any further disclosure of this information without the specific written consent of the person to whom it pertains, or as otherwise permitted by law. Any unauthorized further disclosure in violation of state law may result in a fine or snf sentence or both. A general authorization for the release of medical or other information is NOT sufficient authorization for further disc losure. Immunizations Vaccine Date Status Description Data Source(s) COVID-19 VACCINE [employer] 06/16/2021 12:00:00 AM EST completed [facility] Vaccine Series Complete: NOThis Data was Submitted to [facility] Via [employer]. Medications No Information Insurance Providers Payer name Policy type / Coverage type Policy ID Covered libertarian ID Covered libertarian's relationship to garay Policy Garay Plan Information SELF PAY ONLY [id number] SP [id number] [facility] [id number] SP [id number] [facility] [id number] SP [id number] MEDICAID [id number] SP [id number] [facility] [id number] SP [id number] [facility] [id number] SP [id number] Problems, Conditions, and Diagnoses No Information Surgeries/Procedures No Information Results No Information Social History No Information
[2021-06-24] MEDS ORDERED: NITR100C2 PO (16:01)
[2021-06-24] MEDS ORDERED: BUPR1FIL PO (16:01)
--- OUTSIDE RECORDS SUMMARY | 2021-06-24 17:23 | CCD ---
Author Author [facility] Organization [facility] Address Unknown Phone Unavailable Support Name Relationship Address Phone [place] [address] FILIPPO SCHUSTER Next Of Kin [address] [facility] [address] [place] [id number] [employer] Next Of Kin [address] [place] [address] RANJIT GALINDO Next Of Kin [address] [facility] [address] [place] [address] Ramy Ibarra MD Next Of Kin [address] [place] [address] [place] Next Of Kin [address] [place] [id number] GAEL FERNANDEZ Next Of Kin [address] [facility] [address] [place] [address] UE Next Of Kin Unknown Unavailable SARBJIT JENNINGS Next Of Kin [address] [address] [place] [id number] MARLENE HAMILTON Next Of Kin [address] [place] [address] Re-disclosure Warning The records that you are [...] is protected by Article 27-F of the [facility] Public Health law. If you continue you may have access to information: Regarding HIV / AIDS; Provided by facilities licensed or operated by the [facility] Office of Mental Health; or Provided by the [facility] Office for People With Developmental Disabilities. If such information is present, then the following [facility] mandated warning applies: This information has been [...] law may result in a fine or assisted sentence or both. A general authorization for the release of medical or other information is NOT sufficient authorization for further disc losure. Immunizations Vaccine Date Status Description Data Source(s) COVID-19 VACCINE [facility] 06/16/2021 12:00:00 AM EST completed [facility] Vaccine Series Complete: NOThis Data was Submitted to [facility] Via [employer]. Medications No Information Insurance Providers Payer name Policy type / Coverage type Policy ID Covered democrat ID Covered democrat's relationship to garay Policy Garay Plan Information COLT [id number] SP [id number] SELF PAY ONLY [id number] SP [id number] [facility] [id number] SP [id number] [facility] [id number] SP [id number] MEDICAID [id number] SP [id number] [facility] [id number] SP [id number] [facility] [id number] SP [id number] Problems, Conditions, and Diagnoses No Information Surgeries/Procedures No Information Results No Information Social History No Information
[2021-06-24 17:35] LABS: HEMATOCRIT 28.6 % (36.0-47.0); HEMOGLOBIN 9.2 g/dl (12.0-15.5); MEAN CORPUSCULAR HEMOGLOBIN 32.1 pg (27.0-33.0); MEAN CORPUSCULAR HGB CONC 32.2 g/dl (32.0-36.5); MEAN CORPUSCULAR VOLUME 99.7 fl (80.0-96.0); PLATELET COUNT, AUTOMATED 268 10^3/uL (150-450); RED BLOOD COUNT 2.87 10^6/uL (4.00-5.40); WHITE BLOOD COUNT 11.9 10^3/uL (4.0-10.0)
[2021-06-24] MEDS ORDERED: NS 1,000 ML IV ONE (17:40)
[2021-06-24 18:00] LABS: EOSINOPHILS 4 % (0-3); LYMPHOCYTES 14 % (16-44); METAMYELOCYTES 1 % (0-0); MONOCYTES 6 % (0-5); MYELOCYTES 5 % (0-0); NEUTROPHILS 63 % (28-66); PLATELET ESTIMATE NORMAL (NORMAL); PROMYELOCYTES 1 % (0-0)
[2021-06-24 18:06] LABS: ALBUMIN 2.8 GM/DL (3.2-5.2); ALT/SGPT 18 U/L (12-78); BILIRUBIN,DIRECT 0.5 MG/DL (0.0-0.2); BILIRUBIN,TOTAL 1.9 MG/DL (0.2-1.0); BLOOD UREA NITROGEN 14 MG/DL (7-18); CALCIUM LEVEL 8.8 MG/DL (8.5-10.1); CARBON DIOXIDE LEVEL 26 MEQ/L (21-32); CHLORIDE LEVEL 106 MEQ/L (98-107); CREATININE FOR GFR 0.55 MG/DL (0.55-1.30); GLOMERULAR FILTRATION RATE > 60.0 (>60); GLUCOSE, FASTING 86 MG/DL (70-100); LIPASE 36 U/L (73-393); POTASSIUM SERUM 3.7 MEQ/L (3.5-5.1); SODIUM LEVEL 139 MEQ/L (136-145); TOTAL PROTEIN 6.6 GM/DL (6.4-8.2)
[2021-06-24 18:40] LABS: APPEARANCE, URINE HAZY (CLEAR); BACTERIA, URINE AUTO 1+ (NEGATIVE); BILIRUBIN, URINE AUTO NEGATIVE (NEGATIVE); BLOOD, URINE BLOOD 1+ (NEGATIVE); COLOR, URINE AMBER (YELLOW); GLUCOSE, URINE (UA) AUTO NEGATIVE (NEGATIVE); KETONE, URINE AUTO NEGATIVE (NEGATIVE); LEUKOCYTE ESTERASE, URINE AUTO 2+ (NEGATIVE); MUCUS, URINE SMALL (NEGATIVE); NITRITE, URINE AUTO NEGATIVE (NEGATIVE); PROTEIN, URINE AUTO 1+ mg/dL (NEGATIVE); RBC, URINE AUTO 2 /HPF (0-3); SPECIFIC GRAVITY URINE AUTO 1.015 (1.002-1.035); SQUAMOUS EPITHELIAL CELL UR AU 19 /HPF (0-6); WBC, URINE AUTO 19 /HPF (0-3)
[2021-06-24 19:29] VITALS: BP 106/64
== END 2021-06-24 19:30 | disposition home or self-care (01) ==
LOC: M ED 14:55
DX: D64.9 Anemia, unspecified (principal); E80.6 Other disorders of bilirubin metabolism; N15.9 Renal tubulo-interstitial disease, unspecified; F10.239 Alcohol dependence with withdrawal, unspecified; Z79.3 Long term (current) use of hormonal contraceptives; F17.210 Nicotine dependence, cigarettes, uncomplicated

== ENCOUNTER → 2021-09-10 | Outpatient (REF) | payer OTHER ==
[~2021-09-10] MED LIST changes: +BUPR1FIL PO; +NITR100C2 PO
[2021-09-11 12:27] LABS: APPEARANCE, URINE CLOUDY (CLEAR); BACTERIA, URINE AUTO 3+ (NEGATIVE); BILIRUBIN, URINE AUTO NEGATIVE (NEGATIVE); BLOOD, URINE BLOOD 2+ (NEGATIVE); COLOR, URINE YELLOW (YELLOW); GLUCOSE, URINE (UA) AUTO NEGATIVE (NEGATIVE); KETONE, URINE AUTO NEGATIVE (NEGATIVE); LEUKOCYTE ESTERASE, URINE AUTO 3+ (NEGATIVE); MUCUS, URINE SMALL (NEGATIVE); NITRITE, URINE AUTO NEGATIVE (NEGATIVE); PROTEIN, URINE AUTO 2+ mg/dL (NEGATIVE); RBC, URINE AUTO 18 /HPF (0-3); SPECIFIC GRAVITY URINE AUTO 1.009 (1.002-1.035); SQUAMOUS EPITHELIAL CELL UR AU 2 /HPF (0-6); TRANSITIONAL EPITHELIAL AUTO <1 /HPF; UROBILINOGEN, URINE AUTO 0.2 mg/dL (0.0-2.0); WBC, URINE AUTO TNTC /HPF (0-3)
== END ==
LOC: M LAB REF 11:50
PROVIDERS: ATTEND Physician Assistant Medical
DX: R30.0 Dysuria (principal)

== ENCOUNTER → 2022-02-23 | Outpatient (CLI) | payer OTHER ==
[2022-02-23 19:17] LABS: FREE THYROXINE INDEX 3.7 % (1.3-4.8); THYROID STIMULATING HORMONE 1.11 uIU/ML (0.358-3.740); THYROXINE (T4) 10.7 UG/DL (4.5-12.0)
== END ==
LOC: M LAB 16:53
PROVIDERS: ATTEND Obstetrics & Gynecology Gynecologic Oncology
DX: R63.4 Abnormal weight loss (principal); R00.0 Tachycardia, unspecified

== ENCOUNTER → 2023-01-06 | Outpatient (REF) | payer OTHER | LOC: M WUC 17:39 | PROVIDERS: ATTEND Physician Assistant | DX: R30.0 Dysuria (principal) ==

== ENCOUNTER 2023-03-15 18:41 | Emergency (ER) | payer OTHER ==
[~2023-03-15] VITALS: Ht 167.6 cm; Wt 52.3 kg
[2023-03-15 18:43] VITALS: BP 123/73; TEMP 98.1; O2SAT 100
[2023-03-15 21:41] LABS: BASO # 0.1 10^3/uL (0.0-0.2); BASO % 0.6 % (0.0-1.0); EOS # 0.5 10^3/uL (0.0-0.5); EOS % 6.1 % (0.0-3.0); HEMATOCRIT 37.2 % (36.0-47.0); HEMOGLOBIN 12.6 g/dl (12.0-15.5); LYMPH # 1.9 10^3/uL (1.5-5.0); LYMPH % 21.9 % (24.0-44.0); MEAN CORPUSCULAR HEMOGLOBIN 32.2 pg (27.0-33.0); MEAN CORPUSCULAR HGB CONC 33.9 g/dl (32.0-36.5); MEAN CORPUSCULAR VOLUME 95.1 fl (80.0-96.0); MONO # 0.8 10^3/uL (0.0-0.8); MONO % 9.5 % (2.0-8.0); NEUTROPHILS # 5.4 10^3/uL (1.5-8.5); NEUTROPHILS % 61.4 % (36.0-66.0); PLATELET COUNT, AUTOMATED 340 10^3/uL (150-450); RED BLOOD COUNT 3.91 10^6/uL (4.00-5.40); WHITE BLOOD COUNT 8.9 10^3/uL (4.0-10.0)
[2023-03-15 22:03] LABS: ALBUMIN 3.1 G/DL (3.2-5.2); ALKALINE PHOSPHATASE 68 U/L (46-116); ALT/SGPT 11 U/L (7.0-40); AST/SGOT 14 U/L (<34); BILIRUBIN,TOTAL 0.4 MG/DL (0.3-1.2); BLOOD UREA NITROGEN 11 MG/DL (9-23); CALCIUM LEVEL 9.1 MG/DL (8.5-10.1); CARBON DIOXIDE LEVEL 28 MMOL/L (20-31); CHLORIDE LEVEL 108 MMOL/L (98-107); CREATININE FOR GFR 0.96 MG/DL (0.55-1.30); GLOMERULAR FILTRATION RATE > 60.0 (>60); GLUCOSE, FASTING 119 MG/DL (60-100); POTASSIUM SERUM 4.4 MMOL/L (3.5-5.1); SODIUM LEVEL 141 MMOL/L (136-145)
== END 2023-03-15 23:54 | disposition left against medical advice (07) ==
LOC: M ED 18:41
DX: Z53.21 Procedure and treatment not carried out due to patient leaving prior to being seen by health care provider (principal)